=== PATIENT | female | born 1995 | race Caucasian/White ===

== ENCOUNTER 2021-11-22 13:55 | Inpatient (IN) | payer MEDICAID ==
[2021-11-22] VITALS (7 sets, daily range): BP systolic 102–126; BP diastolic 50–80
[~2021-11-22] VITALS: Ht 162.6 cm; Wt 88.7 kg
[2021-11-22 14:28] LABS: BASOPHILS % (AUTO) 0.3 % (0-1); EOSINOPHILS % (AUTO) 0.4 % (0-6); HEMATOCRIT 32.1 % (35.0-45.0); HEMOGLOBIN 10.9 g/dl (12.0-16.0); LYMPHOCYTES # (AUTO) 0.7 X10'3 (1.1-4.8); LYMPHOCYTES % (AUTO) 6.9 % (21-51); MEAN CORPUSCULAR HEMOGLOBIN 34.2 PG (27.0-31.0); MEAN CORPUSCULAR HGB CONC 33.8 g/dL (33.0-36.5); MEAN CORPUSCULAR VOLUME 101.1 FL (78-98); MEAN PLATELET VOLUME 8.4 FL (7.4-10.4); MONOCYTES # (AUTO) 0.3 X10'3 (0-0.9); MONOCYTES % (AUTO) 3.2 % (2-12); NEUTROPHILS # (AUTO) 8.6 X10'3 (1.8-7.7); NEUTROPHILS % (AUTO) 89.2 % (42-75); PLATELET COUNT 251 X10'3 (140-440); RED BLOOD COUNT 3.18 X10'6 (4.20-5.60); RED CELL DISTRIBUTION WIDTH 17.3 % (11.5-14.5); WHITE BLOOD COUNT 9.7 X10'3 (4.5-11.0)
[2021-11-22 15:07] LABS: ALANINE AMINOTRANSFERASE 42 U/L (12-78); ALBUMIN 2.3 G/DL (3.4-5.0); ALBUMIN/GLOBULIN RATIO 0.5 (1.1-1.5); ALKALINE PHOSPHATASE 86 IU/L (46-116); ASPARTATE AMINO TRANSFERASE 38 U/L (10-37); BILIRUBIN,TOTAL 0.6 MG/DL (0.1-1.0); BLOOD UREA NITROGEN 9 MG/DL (7-18); BUN/CREATININE RATIO 17.6 (6.6-38.0); CALCIUM 7.8 MG/DL (8.5-10.1); CREATININE 0.51 MG/DL (0.40-0.90); GLUCOSE 200 MG/DL (70-104); TOTAL CARBON DIOXIDE 34.4 MMOL/L (24-32); TOTAL PROTEIN 6.5 G/DL (6.4-8.2); eGFR > 90 ML/MIN
[2021-11-22 15:15] LABS: ANION GAP 9 (8-16); CHLORIDE 97 MMOL/L (99-107); POTASSIUM 3.5 MMOL/L (3.5-5.1); SODIUM 140 MMOL/L (135-145)
--- NOTE | 2021-11-22 15:25 | NUR ---
PT'S SISTER, FINA CAMARGO; IS PTS CONSERVITOR AND CALLED FOR STATUS UPDATE. INFORMED THAT LABS AND XRAY IS PENDING CURRENTLY. SISTERS CONTACT PHONE #
[2021-11-22 16:25] LABS: ABG BASE EXCESS 11.8 mmol/L (-2.0-2.0); ABG OXYGEN SATURATION 97.9 % (94-97); ABG PO2 (T) 111.3 mmHg (75.0-100.0); ALLEN'S TEST POSITIVE; FCOHb 0.2 % (0.0-3.9); FMetHb 0.2 % (0.0-1.5); FO2Hb 97.5 % (94-97); RESPIRATORY RATE 20 b/min; TIDAL VOLUME 400 mL; TOTAL HEMOGLOBIN 12.3 G/dl (12.0-16.0)
--- NOTE | 2021-11-22 16:51 | NUR ---
SHIV CALLED TO KADE LUI AT [facility].
--- NOTE | 2021-11-22 17:03 | NUR ---
Dr. Gates called Dr. Avendaño and said pt is declining- pt is being admitted.
[2021-11-22] MEDS ORDERED: iohexol 350MG/ML 100ml bottle IV ONE (17:08)
--- NOTE | 2021-11-22 17:49 | NUR ---
patient back in the room from CT.
[2021-11-22] MEDS ORDERED: heparin 10,000 units/1 ML INJ IV PRN ×2 (18:00→18:40)
[2021-11-22] MEDS ORDERED: heparin 10,000 units/1 ML INJ IV ONE ×3 (18:00→18:40)
[2021-11-22] MEDS ORDERED: acetaminophen 325mg tablet PO PRN ×2 (18:40)
[2021-11-22] MEDS ORDERED: ondansetron/PF 4mg/2ml inj IV PRN (18:40)
[2021-11-22] MEDS ORDERED: magnesium hydroxide 30ml (MOM) UD suspension PO PRN (18:40)
[2021-11-22] MEDS ORDERED: LIDOcaine 2% 10ml TOPICAL JELLY (Urojet) TP ONE (18:40)
[2021-11-22] MEDS ORDERED: morphine 4 MG/ML inj SYRINge IV PRN (18:40)
[2021-11-22] MEDS ORDERED: heparin 25,000 UNIT/250ml bag 250 ML IV SCH (18:40)
[2021-11-22] MEDS ORDERED: morphine 2 MG/ML inj. syringe IV PRN (18:40)
[2021-11-22] MEDS: heparin 25,000 UNIT/250ml bag 250 ML IV SCH (18:49)
[2021-11-22] MEDS: sennosides/docusate sodium tablet PO SCH (23:27)
[2021-11-22] MEDS: meropenem inj 1 GM in normal saline 100ml IV soln 100 ML IV SCH (23:35)
[2021-11-23] VITALS (32 sets, daily range): BP systolic 97–144; BP diastolic 53–83
[2021-11-23 03:29] LABS: BASOPHILS % (AUTO) 0.5 % (0-1); EOSINOPHILS # (AUTO) 0.1 X10'3 (0-0.9); EOSINOPHILS % (AUTO) 0.8 % (0-6); HEMATOCRIT 29.8 % (35.0-45.0); LYMPHOCYTES # (AUTO) 1.8 X10'3 (1.1-4.8); LYMPHOCYTES % (AUTO) 27.6 % (21-51); MEAN CORPUSCULAR HGB CONC 33.6 g/dL (33.0-36.5); MEAN CORPUSCULAR VOLUME 101.2 FL (78-98); MEAN PLATELET VOLUME 8.9 FL (7.4-10.4); MONOCYTES # (AUTO) 0.3 X10'3 (0-0.9); MONOCYTES % (AUTO) 4.6 % (2-12); NEUTROPHILS # (AUTO) 4.4 X10'3 (1.8-7.7); NEUTROPHILS % (AUTO) 66.5 % (42-75); PLATELET COUNT 239 X10'3 (140-440); RED BLOOD COUNT 2.94 X10'6 (4.20-5.60); RED CELL DISTRIBUTION WIDTH 17.3 % (11.5-14.5); WHITE BLOOD COUNT 6.6 X10'3 (4.5-11.0)
[2021-11-23 04:04] LABS: ALANINE AMINOTRANSFERASE 34 U/L (12-78); ALBUMIN 2.2 G/DL (3.4-5.0); ALBUMIN/GLOBULIN RATIO 0.7 (1.1-1.5); ANION GAP 9 (8-16); ASPARTATE AMINO TRANSFERASE 17 U/L (10-37); BILIRUBIN,TOTAL 0.6 MG/DL (0.1-1.0); BLOOD UREA NITROGEN 6 MG/DL (7-18); BUN/CREATININE RATIO 16.7 (6.6-38.0); CALCIUM 8.7 MG/DL (8.5-10.1); CHLORIDE 101 MMOL/L (99-107); CREATININE 0.36 MG/DL (0.40-0.90); GLUCOSE 95 MG/DL (70-104); MAGNESIUM 1.8 MG/DL (1.5-2.4); PHOSPHORUS 3.2 MG/DL (2.3-4.5); SODIUM 143 MMOL/L (135-145); TOTAL CARBON DIOXIDE 33.2 MMOL/L (24-32); TOTAL PROTEIN 5.3 G/DL (6.4-8.2); eGFR > 90 ML/MIN
[2021-11-23 04:17] LABS: POTASSIUM 2.9 MMOL/L (3.5-5.1)
[2021-11-23] MEDS ORDERED: potassium Cl 40MEQ/1/2NS 520ml 520 ML IV PRN (04:35)
[2021-11-23] MEDS ORDERED: magnesium 4gm in 100ml NS 100 ML IV PRN (04:35)
[2021-11-23] MEDS ORDERED: magnesium 2GM in 50ml NS 50 ML IV PRN (04:35)
[2021-11-23] MEDS ORDERED: potassium CL 10mEq/100ml bag 100 ML IV PRN (04:35)
[2021-11-23] MEDS ORDERED: potassium Cl 40MEQ/250ML bag 250 ML IV PRN (04:35)
[2021-11-23] MEDS: potassium Cl 20mEq/100mL bag 100 ML IV PRN ×4 (04:53→11:26)
[2021-11-23] MEDS: QUEtiapine 25mg tablet PO PRN (07:09)
[2021-11-23] MEDS: meropenem inj 1 GM in normal saline 100ml IV soln 100 ML IV SCH ×2 (07:16→16:36)
[2021-11-23] MEDS: K and/or MAG REPLACEMENT MC SCH (07:38)
[2021-11-23] MEDS: pantoprazole 40MG/NS 100ML BAG 100 ML IV SCH (08:22)
[2021-11-23 09:25] LABS: ANISOCYTOSIS 1+; PLATELET ESTIMATE NORMAL; TOTAL CELLS COUNTED 100
[2021-11-23 09:26] LABS: POLYCHROMASIA FEW; TOXIC GRANULATION 1+; TOXIC VACUOLATION 1+
[2021-11-23] MEDS: heparin 25,000 UNIT/250ml bag 250 ML IV SCH (11:30)
--- NOTE | 2021-11-23 13:41 | NUR ---
Initial: Pt intubated w/ a trach, admit dx acute respiratory failure w/ hypoxia, BL PNA, and BL pulmonary embolism per EMR. Pt recently hospitalized with COVID pneumonia on 10/27/21 per MD. IF prolonged intubation, recommend TF w/ Vital High Protein, see recs below. No BM documented, receiving routine Senna. Will continue to monitor. Recommendations: 1. IF TF, continuous Vital High Protein at 60 ml/hr to provide 1440 ml total volume, 1440 kcals, 126 g protein, and 1204 ml water 2. IF TF, 100 ml water flushes q 4 hr; monitor serum Na 3. IF TF, PALB Q /; Daily scaled wts 4. Routine bowel care Addendum: 11/23/21 at [address] Amended: Links added. Addendum: 11/23/21 at [address] I have reviewed and agree with note by Car Repair Supervisor. HARISH Ramos
--- NOTE | 2021-11-23 14:10 | NUR ---
TF consult: Per TC with RN pt with a PEG in place, see TF recommendations below. Recommendations: 1. Continuous Vital High Protein via PEG with 60 ml/hr goal to provide 1440 ml total volume/day, 1440 kcal, 126 g protein, and 1204 ml water 2. Additional 100 ml water flush Q4H; monitor serum Na 3. PALB q / 4. Daily scaled wts 5. Routine bowel care Addendum: 11/23/21 at [address] Amended: Links added.
--- NOTE | 2021-11-23 15:09 | NUR ---
Jeff [place] RD pt was receiving Glucerna 1.5 at 40 mL x 23 hrs providing 1380 kcal and 76 g protein with a scaled wt of 90.5 kg taken 11/15. Per Ryan MOREIRA patient with A1c 7.5% 11/18. DM education not appropriate at this time. Noted BG levels range 95-200 mg/dL since admit. Recommend continuing with current TF recommendations to best meet patient's estimated nutrient needs while on the vent. Will continue to follow closely. Addendum: 11/23/21 at [address] Amended: Links added.
[2021-11-23] MEDS ORDERED: LORA-269 PO (15:23)
[2021-11-23] MEDS ORDERED: ESCI20TA39 PO (15:23)
[2021-11-23] MEDS ORDERED: METF-1203 PO (15:23)
--- NOTE | 2021-11-23 15:45 | NUR ---
Vital HP started @1500 @ a rate of 20 mls/hr.
--- NOTE | 2021-11-23 16:56 | NUR ---
Received a call from [facility] regarding a positive sputum culture collected on 11/20/21 for MRSA. Pt. on contact isolation while awaiting for medical record.
[2021-11-23] MEDS ORDERED: vancomycin 1,750 MG in NS 350ml IV soln IV ONE (18:45)
[2021-11-23] MEDS ORDERED: VANCOMYCIN 1GM/200ML IVPB 200 ML IV ONE (20:00)
[2021-11-23] MEDS: sennosides/docusate sodium tablet PO SCH (21:00)
[2021-11-24] VITALS (30 sets, daily range): BP systolic 100–142; BP diastolic 51–89
[2021-11-24 03:21] LABS: EOSINOPHILS # (AUTO) 0.1 X10'3 (0-0.9); HEMATOCRIT 29.5 % (35.0-45.0); HEMOGLOBIN 9.7 g/dl (12.0-16.0); LYMPHOCYTES # (AUTO) 1.5 X10'3 (1.1-4.8); LYMPHOCYTES % (AUTO) 31.7 % (21-51); MEAN CORPUSCULAR HEMOGLOBIN 33.2 PG (27.0-31.0); MEAN CORPUSCULAR VOLUME 100.6 FL (78-98); MEAN PLATELET VOLUME 8.9 FL (7.4-10.4); MONOCYTES # (AUTO) 0.3 X10'3 (0-0.9); MONOCYTES % (AUTO) 6.3 % (2-12); NEUTROPHILS # (AUTO) 2.7 X10'3 (1.8-7.7); PLATELET COUNT 241 X10'3 (140-440); RED BLOOD COUNT 2.93 X10'6 (4.20-5.60); RED CELL DISTRIBUTION WIDTH 17.2 % (11.5-14.5); WHITE BLOOD COUNT 4.6 X10'3 (4.5-11.0)
[2021-11-24 03:40] LABS: ALANINE AMINOTRANSFERASE 55 U/L (12-78); ALBUMIN 2.1 G/DL (3.4-5.0); ALBUMIN/GLOBULIN RATIO 0.7 (1.1-1.5); ALKALINE PHOSPHATASE 55 IU/L (46-116); ANION GAP 11 (8-16); ASPARTATE AMINO TRANSFERASE 32 U/L (10-37); BILIRUBIN,TOTAL 0.6 MG/DL (0.1-1.0); BLOOD UREA NITROGEN 7 MG/DL (7-18); BUN/CREATININE RATIO 16.3 (6.6-38.0); CALCIUM 8.3 MG/DL (8.5-10.1); CHLORIDE 102 MMOL/L (99-107); CREATININE 0.43 MG/DL (0.40-0.90); GLUCOSE 104 MG/DL (70-104); MAGNESIUM 1.6 MG/DL (1.5-2.4); PHOSPHORUS 3.9 MG/DL (2.3-4.5); POTASSIUM 3.4 MMOL/L (3.5-5.1); PREALBUMIN 13.6 MG/DL (19-36); SODIUM 140 MMOL/L (135-145); TOTAL CARBON DIOXIDE 27.2 MMOL/L (24-32); eGFR > 90 ML/MIN
[2021-11-24] MEDS: VANCOMYCIN 1GM/200ML IVPB 200 ML IV SCH ×3 (04:30→19:33)
[2021-11-24] MEDS: heparin 25,000 UNIT/250ml bag 250 ML IV SCH ×2 (04:33→20:07)
[2021-11-24] MEDS: potassium Cl 20 mEq SR tablet PO PRN ×2 (04:59→06:01)
[2021-11-24] MEDS: QUEtiapine 25mg tablet PO PRN ×3 (05:00→21:00)
[2021-11-24] MEDS: meropenem inj 1 GM in normal saline 100ml IV soln 100 ML IV SCH ×5 (07:53→23:21)
[2021-11-24] MEDS: pantoprazole 40MG/NS 100ML BAG 100 ML IV SCH (07:53)
[2021-11-24] MEDS: potassium Cl 20mEq/100mL bag 100 ML IV PRN (07:54)
[2021-11-24] MEDS ORDERED: NORM2DIS3 (08:10)
[2021-11-24] MEDS ORDERED: ESOM20CA PO (08:10)
[2021-11-24] MEDS ORDERED: FORM20VI IH (08:10)
[2021-11-24] MEDS ORDERED: MIDO5TAB4 PO (08:10)
[2021-11-24] MEDS ORDERED: METH-806 PO (08:10)
[2021-11-24] MEDS ORDERED: INSU100V9 SQ (08:10)
[2021-11-24] MEDS ORDERED: VANC250C12 PO (08:10)
[2021-11-24] MEDS ORDERED: METO-292 PO (08:10)
[2021-11-24] MEDS ORDERED: INSU100C10 SQ (08:10)
[2021-11-24] MEDS ORDERED: VALP250C3 PO (08:10)
[2021-11-24] MEDS ORDERED: PRED10TA23 PO (08:10)
[2021-11-24] MEDS ORDERED: OLAN5TAB29 PO (08:10)
[2021-11-24] MEDS ORDERED: MERO1VIA23 IV (08:10)
[2021-11-24] MEDS ORDERED: [UNRECOGNIZED DRUG - CODE] SQ (08:10)
[2021-11-24] MEDS: K and/or MAG REPLACEMENT MC SCH (08:12)
[2021-11-24] MEDS ORDERED: ATR0.5NEB IH (08:20)
[2021-11-24] MEDS ORDERED: POLY119P2 PO (08:20)
[2021-11-24] MEDS ORDERED: ALBU2.5V13 NEB (08:20)
[2021-11-24] MEDS ORDERED: DOCU1ENE3 RC (08:20)
[2021-11-24] MEDS ORDERED: albuterol 2.5 MG/3 ML nebule NEB PRN (09:10)
[2021-11-24] MEDS ORDERED: DOCUSATE SODIUM RC PRN (09:10)
[2021-11-24] MEDS ORDERED: BENZOCAINE RC PRN (09:10)
[2021-11-24] MEDS ORDERED: non-formulary drug (Polyethylene Glycol 3350 (Miralax) 17 GM) PO PRN (09:10)
[2021-11-24] MEDS ORDERED: [UNRECOGNIZED DRUG - OTHER] RC PRN (09:10)
[2021-11-24] MEDS ORDERED: ipratropium 0.5 MG/2.5ML nebule IH PRN (12:00)
[2021-11-24] MEDS ORDERED: vancomycin 250MG/10ML UD oral solution 10ML BOTTLE PO SCH (16:00)
[2021-11-24] MEDS ORDERED: polyethylene glycol 3350 17gm powd pack PO PRN (18:40)
[2021-11-24] MEDS ORDERED: VANCOMYCIN LEVEL IV ONE (19:30)
[2021-11-24] MEDS: OLANZapine 5mg rapidly disint. tablet PO SCH (19:31)
[2021-11-24] MEDS: valproate sod 250mg/5ml UD oral syrup PO SCH (19:32)
[2021-11-24] MEDS: sennosides/docusate sodium tablet PO SCH (20:07)
[2021-11-25] VITALS (28 sets, daily range): BP systolic 96–142; BP diastolic 53–95
[2021-11-25 02:50] LABS: BASOPHILS # (AUTO) 0.1 X10'3 (0-0.2); BASOPHILS % (AUTO) 1.1 % (0-1); EOSINOPHILS # (AUTO) 0.1 X10'3 (0-0.9); EOSINOPHILS % (AUTO) 2.5 % (0-6); HEMATOCRIT 30.9 % (35.0-45.0); HEMOGLOBIN 10.4 g/dl (12.0-16.0); LYMPHOCYTES # (AUTO) 1.5 X10'3 (1.1-4.8); MEAN CORPUSCULAR HEMOGLOBIN 33.4 PG (27.0-31.0); MEAN CORPUSCULAR HGB CONC 33.6 g/dL (33.0-36.5); MEAN CORPUSCULAR VOLUME 99.2 FL (78-98); MEAN PLATELET VOLUME 8.4 FL (7.4-10.4); MONOCYTES # (AUTO) 0.3 X10'3 (0-0.9); NEUTROPHILS # (AUTO) 2.6 X10'3 (1.8-7.7); NEUTROPHILS % (AUTO) 56.4 % (42-75); PLATELET COUNT 270 X10'3 (140-440); RED BLOOD COUNT 3.12 X10'6 (4.20-5.60); RED CELL DISTRIBUTION WIDTH 17.7 % (11.5-14.5); WHITE BLOOD COUNT 4.7 X10'3 (4.5-11.0)
[2021-11-25 03:19] LABS: ALANINE AMINOTRANSFERASE 35 U/L (12-78); ALBUMIN 2.2 G/DL (3.4-5.0); ALBUMIN/GLOBULIN RATIO 0.8 (1.1-1.5); ALKALINE PHOSPHATASE 59 IU/L (46-116); ANION GAP 11 (8-16); ASPARTATE AMINO TRANSFERASE 26 U/L (10-37); BILIRUBIN,TOTAL 0.5 MG/DL (0.1-1.0); BLOOD UREA NITROGEN 8 MG/DL (7-18); BUN/CREATININE RATIO 17.4 (6.6-38.0); CALCIUM 8.1 MG/DL (8.5-10.1); CHLORIDE 106 MMOL/L (99-107); CREATININE 0.46 MG/DL (0.40-0.90); GLUCOSE 141 MG/DL (70-104); MAGNESIUM 1.6 MG/DL (1.5-2.4); POTASSIUM 3.5 MMOL/L (3.5-5.1); SODIUM 144 MMOL/L (135-145); TOTAL CARBON DIOXIDE 26.6 MMOL/L (24-32); TOTAL PROTEIN 5.1 G/DL (6.4-8.2); eGFR > 90 ML/MIN
[2021-11-25] MEDS: VANCOMYCIN 1GM/200ML IVPB 200 ML IV SCH ×3 (03:58→19:25)
[2021-11-25] MEDS: potassium Cl 20 mEq SR tablet PO PRN ×2 (04:16→05:32)
[2021-11-25 04:53] LABS: ANISOCYTOSIS 1+; PLATELET ESTIMATE NORMAL; TOTAL CELLS COUNTED 100
[2021-11-25 04:54] LABS: POLYCHROMASIA FEW; TOXIC GRANULATION 1+; TOXIC VACUOLATION FEW
[2021-11-25] MEDS: prednisone 10mg tablet PO SCH (07:15)
[2021-11-25] MEDS: ESCITALOPRAM OXALATE 5 MG TABLET PO SCH (07:15)
[2021-11-25] MEDS: meropenem inj 1 GM in normal saline 100ml IV soln 100 ML IV SCH ×2 (07:15→15:45)
[2021-11-25] MEDS: OLANZapine 5mg rapidly disint. tablet PO SCH ×2 (07:15→19:24)
[2021-11-25] MEDS: pantoprazole 40MG/NS 100ML BAG 100 ML IV SCH (07:15)
[2021-11-25] MEDS: valproate sod 250mg/5ml UD oral syrup PO SCH ×2 (07:16→19:25)
[2021-11-25] MEDS: K and/or MAG REPLACEMENT MC SCH (08:00)
[2021-11-25] MEDS ORDERED: non-formulary drug (Esomeprazole Magnesium (Nexium) 1 CAP) PO SCH (08:00)
[2021-11-25 08:23] LABS: BETA HCG,QUANTITATIVE < 1.0 mIU/ml
[2021-11-25] MEDS: QUEtiapine 25mg tablet PO PRN (14:15)
[2021-11-25] MEDS: heparin 25,000 UNIT/250ml bag 250 ML IV SCH (15:42)
[2021-11-25] MEDS: sennosides/docusate sodium tablet PO SCH (21:00)
[2021-11-26] VITALS (33 sets, daily range): BP systolic 99–127; BP diastolic 51–82
[2021-11-26] MEDS: meropenem inj 1 GM in normal saline 100ml IV soln 100 ML IV SCH ×4 (00:08→23:23)
[2021-11-26] MEDS: VANCOMYCIN 1GM/200ML IVPB 200 ML IV SCH ×3 (03:13→20:17)
[2021-11-26 04:09] LABS: BASOPHILS # (AUTO) 0.1 X10'3 (0-0.2); BASOPHILS % (AUTO) 0.8 % (0-1); EOSINOPHILS # (AUTO) 0.1 X10'3 (0-0.9); EOSINOPHILS % (AUTO) 1.1 % (0-6); HEMATOCRIT 32.9 % (35.0-45.0); HEMOGLOBIN 10.9 g/dl (12.0-16.0); LYMPHOCYTES # (AUTO) 2.1 X10'3 (1.1-4.8); LYMPHOCYTES % (AUTO) 33.9 % (21-51); MEAN CORPUSCULAR HEMOGLOBIN 33.3 PG (27.0-31.0); MEAN CORPUSCULAR HGB CONC 33.1 g/dL (33.0-36.5); MEAN CORPUSCULAR VOLUME 100.5 FL (78-98); MEAN PLATELET VOLUME 9.7 FL (7.4-10.4); MONOCYTES # (AUTO) 0.4 X10'3 (0-0.9); MONOCYTES % (AUTO) 6.1 % (2-12); NEUTROPHILS # (AUTO) 3.7 X10'3 (1.8-7.7); NEUTROPHILS % (AUTO) 58.1 % (42-75); PLATELET COUNT 290 X10'3 (140-440); RED BLOOD COUNT 3.27 X10'6 (4.20-5.60); RED CELL DISTRIBUTION WIDTH 18.2 % (11.5-14.5); WHITE BLOOD COUNT 6.3 X10'3 (4.5-11.0)
[2021-11-26 04:37] LABS: ABG BASE EXCESS 1.7 mmol/L (-2.0-2.0); ABG HCO3 25.6 mmol/L (22.0-26.0); ABG OXYGEN SATURATION 93.2 % (94-97); ABG PCO2 (T) 36.3 mmHg (32.0-45.0); ABG PO2 (T) 64.6 mmHg (75.0-100.0); ALLEN'S TEST POSITIVE; FCOHb 0.3 % (0.0-3.9); FMetHb 0.2 % (0.0-1.5); FO2Hb 92.7 % (94-97); PATIENT TEMPERATURE 36.2; PEEP 5 cm H2O; TOTAL HEMOGLOBIN 11.8 G/dl (12.0-16.0)
[2021-11-26 04:40] LABS: ALANINE AMINOTRANSFERASE 44 U/L (12-78); ALBUMIN 2.3 G/DL (3.4-5.0); ALBUMIN/GLOBULIN RATIO 0.7 (1.1-1.5); ALKALINE PHOSPHATASE 62 IU/L (46-116); ANION GAP 9 (8-16); ASPARTATE AMINO TRANSFERASE 23 U/L (10-37); BILIRUBIN,TOTAL 0.4 MG/DL (0.1-1.0); BLOOD UREA NITROGEN 8 MG/DL (7-18); BUN/CREATININE RATIO 17.4 (6.6-38.0); CALCIUM 8.6 MG/DL (8.5-10.1); CHLORIDE 106 MMOL/L (99-107); CREATININE 0.46 MG/DL (0.40-0.90); GLUCOSE 151 MG/DL (70-104); MAGNESIUM 1.6 MG/DL (1.5-2.4); PHOSPHORUS 4.7 MG/DL (2.3-4.5); POTASSIUM 4.1 MMOL/L (3.5-5.1); SODIUM 142 MMOL/L (135-145); TOTAL CARBON DIOXIDE 27.2 MMOL/L (24-32); TOTAL PROTEIN 5.6 G/DL (6.4-8.2); eGFR > 90 ML/MIN
[2021-11-26 05:05] LABS: TOTAL CELLS COUNTED 100
[2021-11-26 05:06] LABS: ANISOCYTOSIS 2+; PLATELET ESTIMATE NORMAL; POLYCHROMASIA 1+
[2021-11-26] MEDS: heparin 25,000 UNIT/250ml bag 250 ML IV SCH ×2 (06:07→20:29)
--- NOTE | 2021-11-26 06:24 | NUR ---
Patient in room CICU 2013. I have received report from Myles LUI and had the opportunity to ask questions and assume patient care.
[2021-11-26] MEDS: pantoprazole 40MG/NS 100ML BAG 100 ML IV SCH (07:41)
[2021-11-26] MEDS: ESCITALOPRAM OXALATE 5 MG TABLET PO SCH (07:41)
[2021-11-26] MEDS: prednisone 10mg tablet PO SCH (07:42)
[2021-11-26] MEDS: OLANZapine 5mg rapidly disint. tablet PO SCH ×2 (07:42→20:17)
[2021-11-26] MEDS: valproate sod 250mg/5ml UD oral syrup PO SCH ×2 (07:42→20:18)
[2021-11-26] MEDS: QUEtiapine 25mg tablet PO PRN (08:34)
--- NOTE | 2021-11-26 09:38 | NUR ---
Reassessment: Pt remains intubated and tolerating TF at goal rate with GRV WNL. Serum Na WNL while receiving 100 mL water flushes Q4H. LBM 11/25 per I&O. Noted pt with routine bowel care available though has been held d/t diarrhea per EMR. No changes to nutrition recommendations at this time. Will continue to follow. Recommendations: 1. Continuous Vital High Protein via PEG with 60 mL/hr goal to provide 1440 mL total volume/day, 1440 kcal, 126 g protein, and 1204 mL water 2. Additional 100 mL water flush Q4H; monitor serum Na 3. PALB q Sunday/ 4. Daily scaled wts 5. Routine bowel care Addendum: 11/26/21 at [address] Amended: Links added.
--- NOTE | 2021-11-26 17:33 | NUR ---
[place] spontaneous mode on vent all day well without s/s resp distress. Up in cardiac chair for 1 1/2 hours. [place] well. Hemodynamically stable.
--- NOTE | 2021-11-26 18:15 | NUR ---
Problems reprioritized. Patient report given, questions answered & plan of care reviewed with Myles LUI.
[2021-11-26] MEDS: sennosides/docusate sodium tablet PO SCH (20:17)
[2021-11-27] VITALS (40 sets, daily range): BP systolic 83–163; BP diastolic 56–93
[2021-11-27 03:05] LABS: BASOPHILS # (AUTO) 0.1 X10'3 (0-0.2); BASOPHILS % (AUTO) 1.3 % (0-1); EOSINOPHILS # (AUTO) 0.1 X10'3 (0-0.9); HEMATOCRIT 31.9 % (35.0-45.0); HEMOGLOBIN 10.6 g/dl (12.0-16.0); LYMPHOCYTES # (AUTO) 2.4 X10'3 (1.1-4.8); LYMPHOCYTES % (AUTO) 39.1 % (21-51); MEAN CORPUSCULAR HEMOGLOBIN 33.4 PG (27.0-31.0); MEAN CORPUSCULAR HGB CONC 33.1 g/dL (33.0-36.5); MEAN CORPUSCULAR VOLUME 100.9 FL (78-98); MEAN PLATELET VOLUME 8.9 FL (7.4-10.4); MONOCYTES # (AUTO) 0.4 X10'3 (0-0.9); MONOCYTES % (AUTO) 7.2 % (2-12); NEUTROPHILS # (AUTO) 3.2 X10'3 (1.8-7.7); NEUTROPHILS % (AUTO) 51.4 % (42-75); PLATELET COUNT 292 X10'3 (140-440); RED BLOOD COUNT 3.17 X10'6 (4.20-5.60); RED CELL DISTRIBUTION WIDTH 18.1 % (11.5-14.5); WHITE BLOOD COUNT 6.2 X10'3 (4.5-11.0)
[2021-11-27 03:36] LABS: APTT 56 SECONDS (22-32)
[2021-11-27 03:41] LABS: ALANINE AMINOTRANSFERASE 50 U/L (12-78); ALBUMIN 2.3 G/DL (3.4-5.0); ALBUMIN/GLOBULIN RATIO 0.7 (1.1-1.5); ALKALINE PHOSPHATASE 58 IU/L (46-116); ANION GAP 10 (8-16); ASPARTATE AMINO TRANSFERASE 28 U/L (10-37); BILIRUBIN,TOTAL 0.4 MG/DL (0.1-1.0); BLOOD UREA NITROGEN 8 MG/DL (7-18); BUN/CREATININE RATIO 20.5 (6.6-38.0); CALCIUM 8.4 MG/DL (8.5-10.1); CHLORIDE 107 MMOL/L (99-107); CREATININE 0.39 MG/DL (0.40-0.90); GLUCOSE 140 MG/DL (70-104); MAGNESIUM 1.8 MG/DL (1.5-2.4); PHOSPHORUS 4.4 MG/DL (2.3-4.5); POTASSIUM 3.9 MMOL/L (3.5-5.1); SODIUM 145 MMOL/L (135-145); TOTAL CARBON DIOXIDE 27.9 MMOL/L (24-32); TOTAL PROTEIN 5.6 G/DL (6.4-8.2); eGFR > 90 ML/MIN
[2021-11-27] MEDS: VANCOMYCIN 1GM/200ML IVPB 200 ML IV SCH ×3 (04:10→20:21)
[2021-11-27 04:18] LABS: ANISOCYTOSIS 2+; PLATELET ESTIMATE NORMAL; POLYCHROMASIA 1+; TOTAL CELLS COUNTED 100
[2021-11-27 04:19] LABS: STOMATOCYTES FEW
[2021-11-27] MEDS: meropenem inj 1 GM in normal saline 100ml IV soln 100 ML IV SCH ×2 (08:35→16:29)
[2021-11-27] MEDS: pantoprazole 40MG/NS 100ML BAG 100 ML IV SCH (08:35)
[2021-11-27] MEDS: prednisone 10mg tablet PO SCH (08:36)
[2021-11-27] MEDS: OLANZapine 5mg rapidly disint. tablet PO SCH ×2 (08:36→20:20)
[2021-11-27] MEDS: ESCITALOPRAM OXALATE 5 MG TABLET PO SCH (08:36)
[2021-11-27] MEDS: valproate sod 250mg/5ml UD oral syrup PO SCH ×2 (08:36→20:19)
[2021-11-27] MEDS ORDERED: dextrose 50%-water 50ml dispensing syringe IV PRN ×2 (14:45)
[2021-11-27] MEDS ORDERED: DEXTROSE 15 GM of carb/4 tabs (each vial/BOTTLE has 4 tablets) PO PRN ×2 (14:45)
[2021-11-27] MEDS ORDERED: MESSAGE TO PHARMACY PO ONE (14:45)
[2021-11-27] MEDS ORDERED: glucagon, human recombinant 1mg kit SUBCUT PRN (14:45)
[2021-11-27] MEDS: heparin 25,000 UNIT/250ml bag 250 ML IV SCH (16:29)
[2021-11-27] MEDS: QUEtiapine 25mg tablet PO PRN (16:44)
[2021-11-27 16:52] LABS: HEMOGLOBIN A1C 7.7 % (4.5-6.2)
[2021-11-27] MEDS: apixaban 5mg tablet PO SCH (20:22)
[2021-11-27] MEDS: sennosides/docusate sodium tablet PO SCH (20:22)
[2021-11-27] MEDS ORDERED: diphenhydrAMINE 50 mg/ml inj IV ONE (21:10)
[2021-11-27] MEDS: insulin glargine (Lantus) pen - multi-dose SQ SCH (21:40)
[2021-11-27] MEDS: insulin regular, human U-100 3ml vial - multi-dose SQ SCH (21:41)
[2021-11-28] VITALS (42 sets, daily range): BP systolic 98–129; BP diastolic 31–83
[2021-11-28] MEDS: meropenem inj 1 GM in normal saline 100ml IV soln 100 ML IV SCH ×3 (00:48→15:39)
[2021-11-28 03:10] LABS: APTT 32 SECONDS (22-32)
[2021-11-28 03:23] LABS: ALANINE AMINOTRANSFERASE 65 U/L (12-78); ALBUMIN 2.5 G/DL (3.4-5.0); ALBUMIN/GLOBULIN RATIO 0.8 (1.1-1.5); ALKALINE PHOSPHATASE 57 IU/L (46-116); ANION GAP 8 (8-16); ASPARTATE AMINO TRANSFERASE 33 U/L (10-37); BILIRUBIN,TOTAL 0.4 MG/DL (0.1-1.0); BLOOD UREA NITROGEN 8 MG/DL (7-18); CALCIUM 8.8 MG/DL (8.5-10.1); CHLORIDE 107 MMOL/L (99-107); GLUCOSE 101 MG/DL (70-104); MAGNESIUM 1.8 MG/DL (1.5-2.4); PHOSPHORUS 4.4 MG/DL (2.3-4.5); POTASSIUM 3.5 MMOL/L (3.5-5.1); PREALBUMIN 17.1 MG/DL (19-36); SODIUM 143 MMOL/L (135-145); TOTAL PROTEIN 5.7 G/DL (6.4-8.2); eGFR > 90 ML/MIN
[2021-11-28] MEDS: VANCOMYCIN 1GM/200ML IVPB 200 ML IV SCH (03:23)
[2021-11-28] MEDS: potassium Cl 20mEq/100mL bag 100 ML IV PRN (04:23)
[2021-11-28] MEDS: apixaban 5mg tablet PO SCH ×2 (08:12→20:27)
[2021-11-28] MEDS: pantoprazole 40MG/NS 100ML BAG 100 ML IV SCH (08:12)
[2021-11-28] MEDS: prednisone 10mg tablet PO SCH (08:12)
[2021-11-28] MEDS: QUEtiapine 25mg tablet PO PRN (08:12)
[2021-11-28] MEDS: ESCITALOPRAM OXALATE 5 MG TABLET PO SCH (08:13)
[2021-11-28] MEDS: OLANZapine 5mg rapidly disint. tablet PO SCH ×2 (08:13→20:29)
[2021-11-28] MEDS: valproate sod 250mg/5ml UD oral syrup PO SCH ×2 (09:23→20:28)
[2021-11-28] MEDS ORDERED: apixaban 5mg tablet PO ONE (12:10)
[2021-11-28] MEDS: sennosides/docusate sodium tablet PO SCH (20:28)
[2021-11-28] MEDS: insulin glargine (Lantus) pen - multi-dose SQ SCH (21:03)
[2021-11-29] VITALS (46 sets, daily range): BP systolic 94–122; BP diastolic 46–86
[2021-11-29] MEDS: meropenem inj 1 GM in normal saline 100ml IV soln 100 ML IV SCH ×3 (00:15→15:30)
[2021-11-29 02:34] LABS: BASOPHILS # (AUTO) 0.1 X10'3 (0-0.2); BASOPHILS % (AUTO) 1.2 % (0-1); EOSINOPHILS # (AUTO) 0.1 X10'3 (0-0.9); EOSINOPHILS % (AUTO) 1.1 % (0-6); HEMATOCRIT 31.2 % (35.0-45.0); HEMOGLOBIN 10.4 g/dl (12.0-16.0); LYMPHOCYTES # (AUTO) 2.3 X10'3 (1.1-4.8); LYMPHOCYTES % (AUTO) 39.1 % (21-51); MEAN CORPUSCULAR HEMOGLOBIN 33.4 PG (27.0-31.0); MEAN CORPUSCULAR HGB CONC 33.5 g/dL (33.0-36.5); MEAN CORPUSCULAR VOLUME 99.8 FL (78-98); MEAN PLATELET VOLUME 8.4 FL (7.4-10.4); MONOCYTES # (AUTO) 0.3 X10'3 (0-0.9); MONOCYTES % (AUTO) 5.9 % (2-12); NEUTROPHILS # (AUTO) 3.1 X10'3 (1.8-7.7); NEUTROPHILS % (AUTO) 52.7 % (42-75); PLATELET COUNT 324 X10'3 (140-440); RED BLOOD COUNT 3.12 X10'6 (4.20-5.60); RED CELL DISTRIBUTION WIDTH 18.5 % (11.5-14.5); WHITE BLOOD COUNT 5.9 X10'3 (4.5-11.0)
[2021-11-29 02:46] LABS: APTT 34 SECONDS (22-32)
[2021-11-29 02:59] LABS: ALANINE AMINOTRANSFERASE 61 U/L (12-78); ALBUMIN 2.5 G/DL (3.4-5.0); ALBUMIN/GLOBULIN RATIO 0.8 (1.1-1.5); ALKALINE PHOSPHATASE 55 IU/L (46-116); ANION GAP 9 (8-16); ASPARTATE AMINO TRANSFERASE 26 U/L (10-37); BILIRUBIN,TOTAL 0.5 MG/DL (0.1-1.0); BLOOD UREA NITROGEN 11 MG/DL (7-18); BUN/CREATININE RATIO 27.5 (6.6-38.0); CHLORIDE 105 MMOL/L (99-107); GLUCOSE 115 MG/DL (70-104); MAGNESIUM 1.8 MG/DL (1.5-2.4); PHOSPHORUS 4.7 MG/DL (2.3-4.5); POTASSIUM 3.6 MMOL/L (3.5-5.1); SODIUM 141 MMOL/L (135-145); TOTAL CARBON DIOXIDE 27.2 MMOL/L (24-32); TOTAL PROTEIN 5.7 G/DL (6.4-8.2); eGFR > 90 ML/MIN
[2021-11-29] MEDS: potassium Cl 20 mEq SR tablet PO PRN (03:33)
[2021-11-29] MEDS ORDERED: furosemide 20 MG/2 ML vial IV ONE (04:45)
[2021-11-29] MEDS: valproate sod 250mg/5ml UD oral syrup PO SCH ×2 (07:34→20:12)
[2021-11-29] MEDS: pantoprazole 40MG/NS 100ML BAG 100 ML IV SCH (07:34)
[2021-11-29] MEDS: apixaban 5mg tablet PO SCH ×2 (07:34→20:12)
[2021-11-29] MEDS: ESCITALOPRAM OXALATE 5 MG TABLET PO SCH (07:34)
[2021-11-29] MEDS: prednisone 10mg tablet PO SCH (07:34)
[2021-11-29] MEDS: OLANZapine 5mg rapidly disint. tablet PO SCH ×2 (07:37→20:12)
[2021-11-29 08:45] LABS: ANISOCYTOSIS 2+; PLATELET ESTIMATE NORMAL; POLYCHROMASIA 1+
[2021-11-29] MEDS ORDERED: albuterol 2.5 MG/3 ML nebule NEB PRN (09:35)
[2021-11-29] MEDS ORDERED: ipratropium/albuterol 3ml nebule IH PRN (09:40)
[2021-11-29] MEDS ORDERED: furosemide 40mg/4ml inj IV ONE (11:25)
[2021-11-29] MEDS: insulin regular, human U-100 3ml vial - multi-dose SQ SCH ×2 (14:32→20:23)
--- NOTE | 2021-11-29 18:45 | NUR ---
Patient in room CICU 2013. I have received report from HU Flor and had the opportunity to ask questions and assume patient care. Patient resting comfortably, Trach and Peg in place. I will continue to monitor.
--- NOTE | 2021-11-29 19:23 | NUR ---
Problems reprioritized. Patient report given, questions answered & plan of care reviewed with HU Jurado.
[2021-11-29] MEDS: QUEtiapine 25mg tablet PO PRN (20:13)
[2021-11-29] MEDS: sennosides/docusate sodium tablet PO SCH (20:13)
[2021-11-29] MEDS: insulin glargine (Lantus) pen - multi-dose SQ SCH (20:22)
[2021-11-30] VITALS (19 sets, daily range): BP systolic 97–120; BP diastolic 53–82
[2021-11-30] MEDS: meropenem inj 1 GM in normal saline 100ml IV soln 100 ML IV SCH ×2 (00:25→07:54)
[2021-11-30 03:30] LABS: BASOPHILS # (AUTO) 0.1 X10'3 (0-0.2); BASOPHILS % (AUTO) 1.4 % (0-1); EOSINOPHILS # (AUTO) 0.1 X10'3 (0-0.9); EOSINOPHILS % (AUTO) 1.5 % (0-6); HEMATOCRIT 35.7 % (35.0-45.0); HEMOGLOBIN 11.9 g/dl (12.0-16.0); LYMPHOCYTES # (AUTO) 2.4 X10'3 (1.1-4.8); LYMPHOCYTES % (AUTO) 44.7 % (21-51); MEAN CORPUSCULAR HEMOGLOBIN 33.3 PG (27.0-31.0); MEAN CORPUSCULAR HGB CONC 33.3 g/dL (33.0-36.5); MEAN CORPUSCULAR VOLUME 99.9 FL (78-98); MONOCYTES # (AUTO) 0.4 X10'3 (0-0.9); MONOCYTES % (AUTO) 6.8 % (2-12); NEUTROPHILS # (AUTO) 2.4 X10'3 (1.8-7.7); NEUTROPHILS % (AUTO) 45.6 % (42-75); PLATELET COUNT 351 X10'3 (140-440); RED BLOOD COUNT 3.58 X10'6 (4.20-5.60); RED CELL DISTRIBUTION WIDTH 18.5 % (11.5-14.5); WHITE BLOOD COUNT 5.3 X10'3 (4.5-11.0)
[2021-11-30 03:45] LABS: APTT 34 SECONDS (22-32)
[2021-11-30 03:51] LABS: ALANINE AMINOTRANSFERASE 94 U/L (12-78); ALBUMIN 2.8 G/DL (3.4-5.0); ALBUMIN/GLOBULIN RATIO 0.8 (1.1-1.5); ALKALINE PHOSPHATASE 64 IU/L (46-116); ANION GAP 9 (8-16); ASPARTATE AMINO TRANSFERASE 50 U/L (10-37); BILIRUBIN,TOTAL 0.6 MG/DL (0.1-1.0); BLOOD UREA NITROGEN 14 MG/DL (7-18); BUN/CREATININE RATIO 29.8 (6.6-38.0); CALCIUM 9.3 MG/DL (8.5-10.1); CHLORIDE 103 MMOL/L (99-107); CREATININE 0.47 MG/DL (0.40-0.90); GLUCOSE 105 MG/DL (70-104); PHOSPHORUS 4.6 MG/DL (2.3-4.5); POTASSIUM 4.2 MMOL/L (3.5-5.1); SODIUM 141 MMOL/L (135-145); TOTAL CARBON DIOXIDE 28.8 MMOL/L (24-32); TOTAL PROTEIN 6.4 G/DL (6.4-8.2); eGFR > 90 ML/MIN
[2021-11-30 05:11] LABS: ANISOCYTOSIS 2+; PLATELET ESTIMATE NORMAL; TOTAL CELLS COUNTED 100
[2021-11-30 05:13] LABS: POLYCHROMASIA FEW
[2021-11-30] MEDS: prednisone 10mg tablet PO SCH (07:53)
[2021-11-30] MEDS: ESCITALOPRAM OXALATE 5 MG TABLET PO SCH (07:53)
[2021-11-30] MEDS: valproate sod 250mg/5ml UD oral syrup PO SCH (07:53)
[2021-11-30] MEDS: OLANZapine 5mg rapidly disint. tablet PO SCH (07:53)
[2021-11-30] MEDS: apixaban 5mg tablet PO SCH (07:54)
[2021-11-30] MEDS: pantoprazole 40MG/NS 100ML BAG 100 ML IV SCH (07:54)
[2021-11-30] MEDS: insulin regular, human U-100 3ml vial - multi-dose SQ SCH (08:03)
[2021-11-30] MEDS ORDERED: levoFLOXACIN-Levaquin 750MG/D5 150 ML IV SCH (11:42)
[2021-12-05] MEDS ORDERED: apixaban 5mg tablet PO SCH (08:00)
== END 2021-11-30 13:58 | DRG 130 ==
LOC: ER 13:55 → ED HOLD 19:30 → CICU 2S 20:47
PROVIDERS: ADMIT Internal Medicine; ATTEND Internal Medicine
PROC: 5A1955Z Respiratory Ventilation, Greater than 96 Consecutive Hours (ICD-10-PCS; principal; 2021-11-22)
PROC: B32T1ZZ Computerized Tomography (CT Scan) of Left Pulmonary Artery using Low Osmolar Contrast (ICD-10-PCS; 2021-11-22)
PROC: B3201ZZ Computerized Tomography (CT Scan) of Thoracic Aorta using Low Osmolar Contrast (ICD-10-PCS; 2021-11-22)
PROC: B32S1ZZ Computerized Tomography (CT Scan) of Right Pulmonary Artery using Low Osmolar Contrast (ICD-10-PCS; 2021-11-22)
DX: J96.21 Acute and chronic respiratory failure with hypoxia (principal); I26.94 Multiple subsegmental thrombotic pulmonary emboli without acute cor pulmonale; E87.3 Alkalosis; J15.9 Unspecified bacterial pneumonia; E88.09 Other disorders of plasma-protein metabolism, not elsewhere classified; Z93.0 Tracheostomy status; Y95 Nosocomial condition; Q90.9 Down syndrome, unspecified; D53.9 Nutritional anemia, unspecified; E11.9 Type 2 diabetes mellitus without complications; E87.6 Hypokalemia; J96.22 Acute and chronic respiratory failure with hypercapnia; R74.01 Elevation of levels of liver transaminase levels; Z78.1 Physical restraint status; Z86.16 Personal history of COVID-19
CPT/HCPCS: 36415; 36600; 71045; 71250; 71275; 80053; 80202; 82803; 82948; 83036; 83735; 83880; 84100; 84132; 84134; 84484; 84702; 85007; 85008; 85018; 85025; 85610; 85730; 87070; 87077; 87081; 87186; 87635; 93005; 93970; 94002; 94003; 94760; 94799; 96365; 96375; 97110; 97161; 97530; 99291; C9113; C9803; G0378; J1200; J1644; J1815; J1940; J1956; J2185; J3370; J3475; J3480; J3490; J7040; J7512; Q9967